=== PATIENT | male | born 1975 | race Caucasian/White ===

== ENCOUNTER 2022-01-22 06:58 | Day surgery (SDC) | payer OTHER ==
[~2022-01-22] VITALS: Ht 177.8 cm; Wt 71.3 kg
[~2022-01-22 06:58] MED LIST: CIPR500 PO; DAILY MULTIPLE1 EACH; FLUO10; PROM25 PO; PROZAC20 MG PO; PYRI100; PYRI100 PO; VITB2 PO; [UNRECOGNIZED DRUG - OTHER] TOP
== END 2022-01-22 09:12 | disposition home or self-care (01) ==
LOC: ORSCSDS 06:58
PROVIDERS: Surgery
PROC: 0DJD8ZZ Inspection of Lower Intestinal Tract, Via Natural or Artificial Opening Endoscopic (ICD-10-PCS; principal; 2022-01-22 08:15)
DX: Z12.11 Encounter for screening for malignant neoplasm of colon (principal); Z86.010 Personal history of colon polyps; F42.9 Obsessive-compulsive disorder, unspecified; Z87.891 Personal history of nicotine dependence; Z79.899 Other long term (current) drug therapy
CPT/HCPCS: J2704; J7120